=== PATIENT | female | born 1945 | race Caucasian/White ===

== ENCOUNTER → 2018-04-06 | Outpatient (CLI) | payer OTHER ==
[2014-08-22 04:24] VITALS: BP 174/84
[~2018-04-06] MED LIST: ASPI-482 PO; ATEN1TAB4 PO; CHOL10003 PO; LORA10TA55 PO; METF500T16 PO; MULT-460 PO; OMEG1CAP6 PO; VITA1TAB3 PO
--- NOTE | 2018-04-09 12:36 | RAD ---
DATE: April 06, 2018 EXAM: MAMMO ESTRELLA SCREENING BILATERAL HISTORY: Screening study. COMPARISON: 2015 and 2017 This study was interpreted with the benefit of Computerized Aided Detection (CAD). 2-D digital mammographic views of both breasts were performed in the CC and MLO projections. 3-D digital tomosynthesis images of both breasts were performed in the CC and MLO projections and reviewed on a computer workstation. FINDINGS: Breast Density: FATTY The breast parenchyma is primarily fatty replaced. Breast parenchyma level density A.. There are no dominant suspicious masses, suspicious microcalcifications or evidence of architectural distortion. IMPRESSION: No mammographic indicators for malignancy. BI-RADS CATEGORY: 1 NEGATIVE RECOMMENDED FOLLOW-UP: 12M 12 MONTH FOLLOW-UP PQRS compliance statement: Patient information was entered into a reminder system with a target due date April 07, 2019 for the next mammogram. Mammography is a sensitive method for finding small breast cancers, but it does not detect them all and is not a substitute for careful clinical examination. A negative mammogram does not negate a clinically suspicious finding and should not result in delay in biopsying a clinically suspicious abnormality. "Our facility is accredited by the [employer] Mammography Program." The patient's breast density may affect the ability of mammography to detect breast cancer. There are 4 categories of breast density, A, B, C and D. Breast density A means that most of the breast tissue is replaced with adipose tissue and therefore is not dense. Breast density B means that the breast tissue is mildly dense and scattered. Breast density C means that the breast tissue is heterogeneously dense. Breast density D means that the breast tissue is very dense. Breast densities especially C and D may decrease the sensitivity of mammography to detect breast cancer. Therefore, the patient may benefit from 3-D breast mammography (3D breast tomography) as a part of their screening mammogram. Insurance may or may not pay for this additional imaging. The patient's breast density based on today's mammogram is category A.
== END | disposition home or self-care (01) ==
LOC: MAMMO 09:49
PROVIDERS: ATTEND Family Medicine
DX: Z12.31 Encounter for screening mammogram for malignant neoplasm of breast (principal)
CPT/HCPCS: 77063; 77067

== ENCOUNTER → 2020-08-20 | Outpatient (CLI) | payer OTHER ==
[2014-08-22 04:24] VITALS: BP 174/84
[~2020-08-20] MED LIST changes: +LORA-169 PO; -LORA10TA55 PO
--- NOTE | 2020-08-20 11:35 | KCIC ---
US ABDOMEN COMPLETE History: Elevated liver function tests Comparison: None. Technique: Sonographic examination of the abdomen. Findings: Liver: The liver measures 14.2 cm. Liver echotexture is coarsened with diffusely increased echotextu re. No focal hepatic lesions. Hepatopetal flow in the portal vein. Gallbladder: Surgically absent. Bile ducts: The common duct measures 4 mm. Pancreas: Partially visualized pancreas is unremarkable. The remainder of the pancreas is limited by bowel gas artifact. Spleen: 8.8 cm. Normal size and echotexture. No focal lesion. Right kidney: 11.0 cm in length. No focal lesion, calculi or hydronephrosis. Left kidney: 11.2 cm in length. No focal lesion, calculi or hydronephrosis. Aorta/IVC: Visualized portions are unremarkable. Other: No ascites. Impression: 1. Hepatic steatosis. 2. Status post cholecystectomy without biliary ductal dilatation. Electronically signed by: Blaise Alves MD (08/20/2020 11:33 AM) [facility]
== END ==
LOC: KCIC US 08:07
PROVIDERS: ATTEND Family Medicine
DX: K76.0 Fatty (change of) liver, not elsewhere classified (principal); R79.89 Other specified abnormal findings of blood chemistry; Z90.49 Acquired absence of other specified parts of digestive tract
CPT/HCPCS: 76700

== ENCOUNTER → 2020-12-29 | Outpatient (CLI) | payer OTHER ==
[2014-08-22 04:24] VITALS: BP 174/84
--- NOTE | 2020-12-29 14:42 | RAD ---
CT of the abdomen and pelvis without contrast. 12/29/2020 11:32 AM Indication: Reason: BILIURIA, ELEVATED LFT'S Comparison Study: None. Technique: Multidetector CT imaging of the abdomen pelvis is obtained without administration of contr ast. Findings: The visualized bilateral lung bases are clear. The left diaphragm is elevated. Pneumobilia is present. The gallbladder is surgically absent. There is what appears previous small sharath wel anastomosis in the right upper quadrant near the gallbladder fossa. Visualization is limited with out IV and oral contrast. This loop of small bowel appears to be blind-ending extending inferiorly in to the right abdomen or second anastomosis appears to be present. This may represent a surgical bilia ry diversion. Correlate with surgical history. The spleen, adrenal glands, and pancreas are grossly u nremarkable. The pancreatic head remains intact. The kidneys are unremarkable. No bowel obstruction i s seen. No overt inflammatory change involving the bowel is identified. No free fluid or free air see n in the abdomen or pelvis. The bladder is predominantly decompressed. IMPRESSION: 1. No evidence of acute intra-abdominal abnormality 2. Possible biliary diversion with a possible biliary to small bowel anastomosis in the right upper a bdomen. Pneumobilia also noted. Correlate with surgical history. CT DOSING PQRS STATEMENT: One or more of the following individualized dose reduction techniques were utilized for this examinat ion: 1. Automated exposure control 2. Adjustment of the mA and/or kV according to patient size 3. Use of iterative reconstruction technique Electronically signed by: Yanick Heredia MD (12/29/2020 2:40 PM) [id number]
== END ==
LOC: CT 11:14
PROVIDERS: ATTEND Family Medicine
DX: R82.2 Biliuria (principal); R79.89 Other specified abnormal findings of blood chemistry
CPT/HCPCS: 74176